=== PATIENT | female | born 1965 | race Caucasian/White ===

== ENCOUNTER 2016-10-12 08:32 | Emergency (ER) | payer BC, OTHER ==
[2016-10-12 08:39] VITALS: BP 141/101; RESP 18; TEMP 98.6
--- NOTE | 2016-10-12 08:44 | EDPHY ---
H & P Stated Complaint: coughing worse at night, sore throat, pred &MDI not helping Time Seen by Provider: 10/12/16 08:39 - Personal History Current Tetanus/Diphtheria Vaccine: Unsure Current Tetanus Diphtheria and Acellular Pertussis (TDAP): Unsure - Medical/Surgical History Hx Asthma: Yes Hx Chronic Respiratory Disease: No Hx Diabetes: No Hx Cardiac Disease: No Hx Renal Disease: No Hx Cirrhosis: No Hx Alcoholism: No Hx HIV/AIDS: No Hx Splenectomy or Spleen Trauma: No Other PMH: 14 knee surg/ bilat shoulder surg/ appy/TA/Hyst. numerous chemical sensitivites etc - Social History Smoking Status: Former smoker Constitutional: Initial Vital Signs Temperature (C) 37.0 C 10/12/16 08:36 Heart Rate 91 10/12/16 08:36 Respiratory Rate 18 10/12/16 08:36 Blood Pressure 141/101 H 10/12/16 08:36 O2 Sat (%) 94 10/12/16 08:36 O2 Delivery Mode Room Air Allergies/Adverse Reactions: allergic to everything Allergy (Uncoded 10/06/15 15:26) Home Medications: Medication Instructions Recorded Albuterol 10/06/15 Pulmicort 10/06/15 guaiFENesin/CODEINE PHOS 5 - 10 ml PO Q4-6PRN PRN #120 ml 10/06/15 [Robitussin AC] predniSONE 10/06/15 predniSONE [prednisone 20mg (RX)] 20 mg PO DAILY #15 tab 10/06/15 Medical Decision Making - Diagnostics Imaging: Imaging Impressions Chest X-Ray 10/12/16 08:51 Impression: Stable and negative. ED Course/Re-evaluation: CHIEF COMPLAINT: Cough, fever, asthma. HISTORY OF PRESENT ILLNESS: The patient is a 51-year-old female with a history of asthma who presents with cough and fever worsening over the past week. She reports that she and her recently moved into a new house and due to her chemical sensitivity her asthma has gotten progressively worse. She admits associated sore throat. No vomiting, diarrhea, abdominal pain, or other complaints. She has been taking steroids for 3 days to no effect, along with her albuterol nebulizer. REVIEW OF SYSTEMS: A 10 point review of systems was performed and is negative with the exception of the elements mentioned in the history of present illness. PHYSICAL EXAM: HR, BP, O2 Sat, RR. Temp noted General Appearance: Alert, well hydrated, appropriate, and non-toxic appearing. Head: Atraumatic without scalp tenderness or obvious injury Eyes: Pupils equal, round, reactive to light and accommodation, EOMI, no trauma , no injection. Ears: Clear bilaterally, no perforation, normal landmarks Nose: Atraumatic, no rhinorrhea, clear. Throat: There is no erythema or exudates, no lesions, normal tonsils, mucus membranes moist. Neck: Supple, 2+ carotid upstroke, nontender, no lymphadenopathy. Respiratory: No retractions, no distress, and no accessory muscle use. Coarse rhonchi and end expiratory wheezing. Cardiovascular: Regular rate and rhythm, no murmurs, rubs, or gallops. Bilateral carotid, radial, dorsalis pedis, and posterior tibial pulses intact. Good capillary refill all extremities. Gastrointestinal: Abdomen is soft, nontender, non-distended, no masses, no rebound, no guarding, no peritoneal signs. Musculoskeletal: Normal active ROM of all extremities, atraumatic. Neurological: Alert, appropriate, and interactive. The patient has normal DTRs and non-focal cranial nerves, motor, sensory, and cerebellar exam. Skin: No rashes, good turgor, no nodules on palpation. Past medical history: Asthma. Past surgical history: Shoulder, T/A, appendectomy, hysterectomy. Family history: N/A. Social history: . DIAGNOSTICS/PROCEDURES/CRITICAL CARE TIME: I independently reviewed the patient's imaging studies on the PACS system. See Imaging section for radiologist reports. DIFFERENTIAL DIAGNOSIS: Differential diagnosis includes but is not limited to: viral syndrome, pneumonia , influenza, asthma exacerbation, pharyngitis, bronchitis (viral or bacterial). MEDICAL DECISION MAKIN-year-old female with a history of asthma presents with progressively worsening cough, shortness of breath, and fever. She has asthma exacerbated by chemical exposure which she feels has gotten worse recently on top of some sort of illness. She has a sore throat as well but no vomiting or diarrhea. I think it is unlikely this could represent influenza but we will obtain a swab. We will obtain a chest x-ray and administer a DuoNeb. Labs are not needed at this time. Chest x-ray interpreted by me is negative. She will be discharged and treated for bronchitis. She is allergic to Azithromycin so I will give her a prescription for Doxycycline. I will give her Atrovent to use in her home nebulizer. She has enough Prednisone left and does not need a prescription for this. - Data Points Laboratory Results: 10/12/16 09:20 Influenza Typ A,B (DFA) Pending Medications Given: Discontinued Medications Albuterol/Ipratropium (Duoneb) 3 ml IH EDNOW ONE Stop: 10/12/16 08:52 Last Admin: 10/12/16 09:02 Dose: 3 ml Departure - Departure Disposition: Home, Routine, Self-Care Clinical Impression: Bronchitis Condition: Good Instructions: Acute Bronchitis (ED) Additional Instructions: Take the antibiotic as prescribed. Follow up with your primary care provider in the next 3-4 days if symptoms are not improving. If you need a primary care provider you have been given the telephone number of Dr. Albert. Return to the emergency department if you experience any serious worsening of condition. Referrals: Rodriguez Albert MD [Medical Doctor] - As per Instructions Report Scribed for: Bg Ramsey Report Scribed by: Carlos Davidson Date of Report: 10/12/16 Time of Report: 08:53
[2016-10-12] MEDS ORDERED: IPRATROPIUM/ALBUTEROL 3 ML DEYVIAL IH ONE (08:51)
[2016-10-12 10:14] VITALS: PULSE 88; O2SAT 96
== END 2016-10-12 10:13 | disposition home or self-care (01) ==
DX: J40 Bronchitis, not specified as acute or chronic (principal); Z87.891 Personal history of nicotine dependence

== ENCOUNTER 2016-12-03 08:21 | Observation (INO) | payer OTHER ==
--- NOTE | 2016-12-03 07:39 | CPEKG ---
Heart Rate: 63 RR Interval: 952 P-R Interval: 124 QRSD Interval: 82 QT Interval: 456 QTC Interval: 467 P Partlow: 43 QRS Partlow: -3 T Wave Partlow: 38 EKG Severity - NORMAL ECG - EKG Impression: SINUS RHYTHM Electronically Signed By: Prince Millard 05-Dec-2016 12:04:17
[2016-12-03] MEDS ORDERED: LIDOCAINE 1% 2 ML INJ ONE ×2 (09:11→09:18)
[2016-12-03] MEDS ORDERED: DEXAMETHASONE 10 MG/ML VIAL ONE (09:43)
[2016-12-03] MEDS ORDERED: LIDO/EPI 1% **Not for Epidural 20 ML MDV ONE (09:47)
[2016-12-03] MEDS ORDERED: MIDAZOLAM 2 MG/2 ML VIAL ONE (10:09)
[2016-12-03] MEDS ORDERED: LIDOCAINE 1% 5 ML SDV ID PRN (10:15)
[2016-12-03] MEDS ORDERED: LR 1,000 ML IV ONE (10:15)
[2016-12-03] MEDS ORDERED: ONDANSETRON 4 MG/2 ML VIAL IVP PRN (10:16)
[2016-12-03] MEDS ORDERED: D5W 1/2 NS W/ 20 KCl/L 1,000 ML IV SCH (10:30)
[2016-12-03] MEDS ORDERED: PROPOFOL 200 MG/20 ML VIAL ONE (10:34)
[2016-12-03] MEDS ORDERED: fentaNYL 100 MCG/2 ML INJ ONE ×5 (10:34→13:38)
[2016-12-03] MEDS ORDERED: ceFAZolin 2 GM/DEXTROSE 100 ML IV ONE (11:00)
[2016-12-03] MEDS ORDERED: DEXAMETHASONE 10 MG/ML VIAL IV ONE (11:00)
[2016-12-03] MEDS ORDERED: THROMBIN (BOVINE) 5,000 UNIT VIAL TP ONE (12:38)
--- NOTE | 2016-12-03 13:47 | GOP ---
[f rep st] OPERATIVE REPORT DATE OF OPERATION: 12/03/2016 SURGEON: Darrick Ny MD CONTRACT CONSULTANT: Harlan Choi MD ANESTHESIA: General endotracheal. PREOPERATIVE DIAGNOSIS: Multinodular goiter. POSTOPERATIVE DIAGNOSIS: Multinodular goiter. PROCEDURE PERFORMED: FINDINGS: SPECIMENS: Hypertrophic and nodular thyroid gland. ESTIMATED BLOOD LOSS: 150 mL. DESCRIPTION OF PROCEDURE: Patient was placed on the operating table in the supine position. After induction of adequate general endotracheal anesthesia, a shoulder roll was placed beneath the patien t's shoulders to extend the neck. The area surrounding the proposed incision was infiltrated utiliz ing 1% lidocaine with 1:100,000 parts epinephrine. A sterile prep of the anterior neck then proceed ed. Once draping had been completed, an incision was created in a naturally-occurring skin crease, slightly superior to the mid point between the cricoid cartilage and the sternal notch. Incision wa s carried down through subcutaneous tissues and through the platysma muscle. Flaps were then elevat ed superiorly and inferiorly in a plane anterior to the strap musculature, widely exposing the thyro id bed. The vertical midline of the neck was identified and then incised. The incision was carried down, reflecting the strap muscles laterally until the thyroid was reached. Initially, the right t hyroid lobe was encountered. Moderate nodularity was noted throughout the enlarged hypertrophic goi ter. Circumferential dissection of the right thyroid was performed, reflecting the strap musculatur e off the underlying thyroid gland. Initially, attention was directed to superior pedicle. The sup erior thyroid pole was grasped with a Hayward and retracted inferomedially. The vascular pedicle wa s then clamped, cut, and tied with 2-0 silk tie distally and a 2-0 silk suture ligature proximally. Dissection then proceeded along the posterior aspect of the gland. The inferior vascular pedicle w as identified. This was clamped, cut, and tied with 2-0 silk ties. Dissection proceeded further al mike the hypertrophic and nodular thyroid, until the tracheoesophageal groove was reached. The recur rent laryngeal nerve was identified and was kept under direct visualization and kept out of harm's w ay as dissection proceeded. The tissues of Mcghee ligament were treated with the bipolar electrocaut melodie, and then sharply divided along the reflection of the right thyroid lobe along the anterior aspe ct of the trachea. Two parathyroid's were identified during this dissection and were left in situ. Attention was then directed to the left side of the neck. The strap musculature was reflected off t he markedly hypertrophic and nodular left thyroid lobe. Initially, the superior vascular pedicle wa s addressed. The superior pole was grasped with a Hayward and retracted inferiorly. The vascular p edicle was then clamped and cut. The proximal portion was tied with a 2-0 silk suture ligature and distal portion tied with 2-0 silk ties. The inferior vascular pedicle was encountered; this was cla mped, cut, and tied with 2-0 silk ties. Marked irregularity and nodularity were noted throughout th e left thyroid lobe. As dissection proceeded, it became necessary to perform finger dissection to r eflect and deliver the markedly hypertrophic lobe into the wound. Once this had been completed, dis section proceeded along the thyroid and immediately super-capsular plane. The recurrent laryngeal n erve was identified in the cricoarytenoid joint and dissected from proximal to distal, keeping the n erve under direct visualization. Once this was completed, the of the thyroid and the ant erior trachea were divided utilizing Bovie electrocautery. The thyroid was then removed. At this p oint, a number of small bleeders were addressed with the bipolar electrocautery. A Dwaine-Castellanos dr starkey was then placed deep in the wound and passed out through the right lateral aspect of the wound, and was sutured into place with 2-0 silk suture. The deep layer closure of the wound was performed utilizing interrupted 3-0 Vicryl sutures approximating the strap musculature. The straps were then reapproximated with a deep layer of the wound utilizing interrupted 4-0 Monocryl sutures. The skin was closed with running 5-0 locked Prolene sutures. The patient tolerated the procedure well and was awakened from anesthesia. PROCEDURE PLANNED AND PERFORMED: Total thyroidectomy. FLUIDS REPLACED: 1000 mL. COMPLICATIONS: None. /[id number]/MODL
[2016-12-03] MEDS ORDERED: HYDROmorphONE/DILAUDID 1 MG/ML SYR ONE (13:54)
[2016-12-03] MEDS: DEXAMETHASONE 4 MG/ML VIAL IVP SCH ×2 (17:12→21:32)
[2016-12-03 17:13] LABS: IONIZED CALCIUM 1.08 MMOL/L (1.12-1.30)
[2016-12-03] MEDS ORDERED: ACETAMINOPHEN 500 MG TAB PO PRN (17:18)
--- NOTE | 2016-12-03 17:18 | SOAPPROG ---
SOAP Progress Note Assessment/Plan: Assessment:51 year old female s/p thyroidectomy. Doing well. Mild dysphagia. - Will discharge home tomorrow AM - Will prescribe tylenol for tonight 12/03/16 17:16 Subjective: 51 year old female s/p thyroidectomy. Doing well. Some mild dysphagia. Mild pain. No numbness/tingling. Objective: Vital Signs Temp Pulse Resp BP Pulse Ox 36.4 C 59 L 16 119/81 H 98 12/03/16 16:20 12/03/16 16:20 12/03/16 16:20 12/03/16 16:20 12/03/16 16:20 12/02/16 12/03/16 12/04/16 05:59 05:59 05:59 Intake Total 1630 Output Total 185 Balance 1445 Voice strong, no stridor Neck flat Drain in place OP normal ICD10 Worksheet Patient Problems: Problems Problem Status Onset S/P thyroidectomy Acute - ICD10 Problem Qualifiers (1) S/P thyroidectomy
[2016-12-03] MEDS: HYDROCOD/APAP 7.5/325 IN 15ML UDCUP PO PRN (21:32)
[2016-12-03] MEDS: CALCIUM CARBONATE 500 MG CHEWABLE TAB PO SCH (21:32)
[2016-12-03 22:14] LABS: IONIZED CALCIUM 1.04 MMOL/L (1.12-1.30)
[2016-12-04] MEDS: DEXAMETHASONE 4 MG/ML VIAL IVP SCH (04:34)
[2016-12-04] MEDS: HYDROCOD/APAP 7.5/325 IN 15ML UDCUP PO PRN ×2 (04:34→09:18)
[2016-12-04 05:32] VITALS: O2SAT 92
[2016-12-04 06:06] LABS: IONIZED CALCIUM 1.06 MMOL/L (1.12-1.30)
--- NOTE | 2016-12-04 07:32 | SOAPPROG ---
SOAP Progress Note Assessment/Plan: Pt sp total thyroid yesterday. Doing well. No hoarseness. No numbness or tingling. O- dressing removed, drain removed, dressing reapplied. Ca- 1.06 Plan: Pt s/p total thyroid. Seen by Dr. alonso this am. Post op care discussed. She will start Tums 2 po tid. F/u in 5 days. 12/04/16 07:30 Objective: Vital Signs Temp Pulse Resp BP Pulse Ox 36.8 C 75 14 111/51 L 92 12/04/16 04:00 12/04/16 04:00 12/04/16 04:00 12/04/16 04:00 12/04/16 04:00 12/03/16 12/04/16 12/05/16 05:59 05:59 05:59 Intake Total 1630 Output Total 185 Balance 1445 ICD10 Worksheet Patient Problems: Problems Problem Status Onset S/P thyroidectomy Acute
[2016-12-04 08:51] VITALS: BP 109/69; PULSE 72; RESP 18; TEMP 97.9
[2016-12-04] MEDS ORDERED: levOFLOXACIN 500 MG/DEXTROSE 100 ML IV SCH (09:00)
[2016-12-04] MEDS: CALCIUM CARBONATE 500 MG CHEWABLE TAB PO SCH (09:18)
== END 2016-12-04 11:57 | disposition home or self-care (01) ==
LOC: F3E 08:21
PROVIDERS: ADMIT Otolaryngology; ATTEND Otolaryngology
PROC: 0GTK0ZZ Resection of Thyroid Gland, Open Approach (ICD-10-PCS; principal; 2016-12-03 10:15)
DX: D34 Benign neoplasm of thyroid gland (principal); E04.2 Nontoxic multinodular goiter; J30.9 Allergic rhinitis, unspecified; J45.909 Unspecified asthma, uncomplicated; K21.9 Gastro-esophageal reflux disease without esophagitis; G43.909 Migraine, unspecified, not intractable, without status migrainosus
CPT/HCPCS: 60240; 93005; G0378; J0690; J1100; J1170; J1200; J2250; J2704; J3010

== ENCOUNTER 2016-12-08 15:15 | Emergency (ER) | payer OTHER ==
[2016-12-08 15:21] VITALS: RESP 16
--- NOTE | 2016-12-08 15:30 | EDPHY ---
HPI/HX/ROS/PE/MDM Narrative: CHIEF COMPLAINT: Right hand swelling HPI: This patient is a 51-year-old female status five days post thyroidectomy performed by Dr. Ny who presents to the Emergency Department complaining of swelling and moderate pain to the site of her IV on her right hand beginning three days prior to arrival and worsening over time. She is taking a course of clindamycin following the procedure but reports that her swelling has continued to increase. Today, she also complains of generalized malaise and nausea. She denies any additional complaints and reports that her procedure was without complication and recovery has been appropriate. No additional pertinent medical history. REVIEW OF SYSTEMS: Aside from elements discussed in the HPI, a comprehensive 10-point review of systems was reviewed and is negative. PMH: 1. Thyroidectomy 2. Multiple orthopedic surgeries 3. Appendectomy SOCIAL HISTORY: PHYSICAL EXAM: General:Patient is alert, in no acute distress. ENT:Eyes are normal to inspection. ENT inspection normal. Neck: Normal inspection. Full range of motion. Respiratory:No respiratory distress. Breath sounds normal bilaterally. Cardiovascular: Regular rate and rhythm. Strong peripheral pulses. Normal cap refill. Abdomen:The abdomen is nontender to palpation. There are no peritoneal signs. There are normal bowel sounds. Back: Normal to inspection. No tenderness to palpation. Skin: Normal color. No rash. Warm and dry. Extremities: Right hand: Erythema and swelling measuring 10cm in diameter to the dorsum of the right hand toward the radial aspect. Limited range of motion to right fingers secondary to pain. All other extremities: Normal appearance, full range of motion. Neuro: Oriented x3. Normal motor function. Normal sensory function. ED Course: 51-year-old female status 5 days post-thyroidectomy presents with complaints of worsening swelling and associated tenderness to her right hand at the site of her IV placement. She also complains of generalized malaise and mild nausea. On exam, she has an area of erythema and swelling measuring 10cm in diameter to the dorsum of her right hand. No additional significant findings. Will proceed with labs and US of the right lower extremity. CBC and basic metabolic panel obtained: WBC elevated at 12.66. Chemistries are within normal limits. 1711: US results reported to me by Dr. Aguilar and is negative. I discussed imaging results and lab findings with the patient. She is given instructions to follow-up with her surgeon and PCP as she has already scheduled. I discussed use of OTC mag citrate for constipation. She understands this treatment plan and will be discharged home in good condition. MDM: This patient presents with swelling and redness to her right hand, which was site of previous PIV. Her US is negative for abscess or DVT. Her WBC is slightly elevated. We will treat her for possible cellulitis with Keflex, which she states she has tolerated in the past. I see no signs of hypocalcemia. She has an appointment with her ENT tomorrow. - Data Points Imaging Results: Imaging Impressions Extremity Venous Study 12/08/16 15:32 Impression: No evidence of vein thrombosis in the right upper extremity. Results discussed with Dr. Clement at 5:11am. Imaging: Discussed imaging studies w/ manager of customer billing Radiologist (Negative) Laboratory Results: Laboratory Results 12/08/16 15:50 12/08/16 15:50 12/08/16 12/08/16 15:50 15:50 WBC 12.66 10^3/uL H 10^3/uL (3.80-9.50) RBC 5.12 10^6/uL 10^6/uL (4.18-5.33) Hgb 15.5 g/dL g/dL (12.6-16.3) Hct 45.5 % % (38.0-47.0) MCV 88.9 fL fL (81.5-99.8) MCH 30.3 pg pg (27.9-34.1) MCHC 34.1 g/dL g/dL (32.4-36.7) RDW 12.3 % % (11.5-15.2) Plt Count 320 10^3/uL 10^3/uL (150-400) MPV 10.1 fL fL (8.7-11.7) Neut % (Auto) 73.5 % % (39.3-74.2) Lymph % (Auto) 15.2 % % (15.0-45.0) Long % (Auto) 8.0 % % (4.5-13.0) Eos % (Auto) 2.1 % % (0.6-7.6) Baso % (Auto) 0.5 % % (0.3-1.7) Nucleat RBC Rel Count 0.0 % % (0.0-0.2) Absolute Neuts (auto) 9.31 10^3/uL H 10^3/uL (1.70-6.50) Absolute Lymphs (auto) 1.92 10^3/uL 10^3/uL (1.00-3.00) Absolute Monos (auto) 1.01 10^3/uL H 10^3/uL (0.30-0.80) Absolute Eos (auto) 0.27 10^3/uL 10^3/uL (0.03-0.40) Absolute Basos (auto) 0.06 10^3/uL 10^3/uL (0.02-0.10) Absolute Nucleated RBC 0.00 10^3/uL 10^3/uL (0-0.01) Immature Gran % 0.7 % % (0.0-1.1) Immature Gran # 0.09 10^3/uL 10^3/uL (0.00-0.10) Sodium 136 mEq/L mEq/L (134-144) Potassium 4.2 mEq/L mEq/L (3.5-5.2) Chloride 101 mEq/L mEq/L (97-110) Carbon Dioxide 26 mEq/l mEq/l (22-31) Anion Gap 9 mEq/L mEq/L (8-16) BUN 12 mg/dL mg/dL (7-23) Creatinine 0.8 mg/dL mg/dL (0.6-1.0) Estimated GFR > 60 Glucose 118 mg/dL H mg/dL (70-100) Calcium 9.8 mg/dL mg/dL (8.5-10.4) General Time Seen by Provider: 12/08/16 15:25 Initial Vital Signs: Initial Vital Signs Temperature (C) 36.7 C 12/08/16 15:19 Heart Rate 98 12/08/16 15:19 Respiratory Rate 16 12/08/16 15:19 Blood Pressure 131/99 H 12/08/16 15:19 O2 Sat (%) 94 12/08/16 15:19 O2 Delivery Mode Room Air Allergies/Adverse Reactions: contact metal agent Allergy (Verified 11/19/16 10:16) weber Allergy (Verified 11/19/16 10:16) latex Allergy (Verified 11/19/16 10:16) Penicillins Allergy (Verified 11/19/16 10:16) Itching perfume Allergy (Verified 11/19/16 10:16) BALLOONS Allergy (Uncoded 11/19/16 10:16) NITRO GLOVES Allergy (Uncoded 11/19/16 10:16) Home Medications: Medication Instructions Recorded Albuterol [Proventil Inhaler HFA 1 - 2 puffs IH DAILY PRN 11/19/16 (*)] Mometasone/Formoterol [Dulera 200 2 puffs IH DAILY 11/19/16 Mcg/5 Mcg Inhaler] Olopatadine HCl [Patanase] 2 sprays EACHNARE DAILY 11/19/16 Cephalexin [Keflex] 500 mg PO Q6H #28 cap 12/08/16 Departure - Departure Disposition: Home, Routine, Self-Care Clinical Impression: Cellulitis of hand Constipation Qualifiers: Constipation type: chronic idiopathic constipation Qualified Code(s): K59.04 - Chronic idiopathic constipation Condition: Good Instructions: Constipation (ED), Cellulitis (ED) Additional Instructions: 1. Keep your scheduled follow-up appointment with your doctor. 2. Buy and use magnesium citrate over the counter as directed to relieve your constipation. 3. Return to the Emergency Department if you experience fever or chills, increased pain or swelling, inability to pass a bowel movement, severe abdominal pain, or for other serious concerns. Referrals: Reanna Ny MD [Medical Doctor] - As per Instructions Prescriptions: Cephalexin [Keflex] 500 mg PO Q6H #28 cap Report Scribed for: Ayan Clement Report Scribed by: Shweta Snow Date of Report: 12/08/16 Time of Report: 15:28 Physician Review and Approval Statement: Portions of this note were transcribed by an ED scribe. I personally performed the history, physical exam, and medical decision making; and confirm the accuracy of the information in the transcribed note.
[2016-12-08 15:55] LABS: % IMMATURE GRANULYOCYTES 0.7 % (0.0-1.1); ABSOLUTE IMMATURE GRANULOCYTES 0.09 10^3/uL (0.00-0.10); ADD DIFF? NO; ADD MORPH? NO; ADD SCAN? NO; ATYPICAL LYMPHOCYTE FLAG 0 (0-99); FRAGMENT RBC FLAG 0 (0-99); HEMATOCRIT 45.5 % (38.0-47.0); HEMOGLOBIN 15.5 g/dL (12.6-16.3); LEFT SHIFT FLG 0 (0-99); LIPEMIA HEMOLYSIS FLAG 90 (0-99); MEAN CELL HEMOGLOBIN 30.3 pg (27.9-34.1); MEAN CELL HEMOGLOBIN CONCENTR. 34.1 g/dL (32.4-36.7); MEAN CELL VOLUME 88.9 fL (81.5-99.8); MEAN PLATELET VOLUME 10.1 fL (8.7-11.7); PLATELET CLUMPS FLAG 0 (0-99); PLATELET COUNT 320 10^3/uL (150-400); RED BLOOD CELL COUNT 5.12 10^6/uL (4.18-5.33); RED CELL DISTRIBUTION WIDTH 12.3 % (11.5-15.2)
[2016-12-08 16:06] LABS: ANION GAP 9 mEq/L (8-16); CALCIUM 9.8 mg/dL (8.5-10.4); CARBON DIOXIDE 26 mEq/l (22-31); CHLORIDE 101 mEq/L (97-110); CREATININE 0.8 mg/dL (0.6-1.0); GLOMERULAR FILTRATION RATE > 60; GLUCOSE 118 mg/dL (70-100); POTASSIUM 4.2 mEq/L (3.5-5.2); SODIUM 136 mEq/L (134-144)
[2016-12-08 17:28] VITALS: BP 125/76; PULSE 81; TEMP 97.9; O2SAT 98
== END 2016-12-08 17:43 | disposition home or self-care (01) ==
DX: L03.113 Cellulitis of right upper limb (principal); K59.04 Chronic idiopathic constipation; Z91.040 Latex allergy status; Y82.8 Other medical devices associated with adverse incidents

== ENCOUNTER → 2017-11-15 | Outpatient (CLI) | payer OTHER | LOC: FIMAGING 10:35 | PROVIDERS: ATTEND Emergency Medicine | DX: R51 Headache (principal); M79.89 Other specified soft tissue disorders ==

== ENCOUNTER 2018-04-06 16:52 | Emergency (ER) | payer OTHER ==
--- NOTE | 2018-04-06 17:22 | EDPHY ---
H & P Stated Complaint: Fall/syncope Time Seen by Provider: 04/06/18 17:03 HPI/ROS: CHIEF COMPLAINT: Right knee pain HISTORY OF PRESENT ILLNESS: 53-year-old female drove herself to the ER complaining of acute right knee pain which occurred approximately 4:30 p.m. Today. She describes being at her physical therapist office having EMG study of her right upper extremity, was laying down for prolonged period of time. She was leaving the office, felt lightheaded, missed a stair and fell forward impacting her right knee. She may have had a brief loss of consciousness. She now states that she is feeling well but is unsure whether she may have hit her head or not. No seizure activity was witnessed by the office staff. No incontinence. No oral trauma. Her only complaint now is right knee pain. She has history of multiple remote right knee surgeries. She denies: Alcohol or drug use, headache, antecedent chest pain, dyspnea, dizziness, current complaints of chest pain or dyspnea, midline C-spine pain, peripheral paresthesia, weakness, numbness PRIMARY CARE PROVIDER:Dr Perez at [facility] REVIEW OF SYSTEMS: 10 systems reviewed and negative with the exception of the elements mentioned in the history of present illness PAST MEDICAL/SURGICAL HISTORY: no anticoagulant use, multiple right knee surgeries. Hypothyroid. Thyroidectomy. Asthma. No history of vasculopathy/ coagulopathy. No history of cardiac disease. Tetanus up-to-date SOCIAL HISTORY: denies alcohol use at time of incident FAMILY HISTORY: No family history premature coronary artery disease, coagulopathic disorder PHYSICAL EXAM 1) GENERAL: Well-developed, well-nourished, alert and oriented. Appears to be in no acute distress. Answering questions appropriately. 2) HEAD: Normocephalic, atraumatic 3) HEENT: Pupils equal, round, reactive to light bilaterally. Negative Horners. Nasopharynx, oropharynx, clear. No deformity or angulation of nose. No septal hematoma. No rhinorrhea. No oral trauma. Ears bilaterally with normal tympanic membranes. No hemotympanum. No fluid or blood in the external auditory canal. No raccoon eyes. No Do sign. Teeth are normally aligned with no gross malocclusion, TMJ bilaterally nontender, facial bones nontender including the zygomatic arch, maxilla mandible. 4) NECK: No cervical collar is on. Posterior cervical spine is nontender, no stepoff, no effusion. Full range of motion which does not elicit any midline cervical spine pain, no posterior midline tenderness, no step-off. 5) LUNGS: Clear to auscultation bilaterally, no wheezes, no rhonchi, no retractions. No obvious signs of trauma. No chest wall pain. No flaring, no grunting. Moving symmetrically. No crepitus. 6) HEART: [Regular rate and rhythm, 7) ABDOMEN: No guarding, no rebound, no focal tenderness, no peritoneal signs, no signs of trauma, no ecchymosis 8) MUSCULOSKELETAL: Right lower extremity: Abrasion to the right anterior knee with noted tenderness over the patella, ecchymosis, old scar noted. Full flexion 90 degrees, full extension to 180 degrees albeit with pain. Proximally distally nontender. Soft compartments. Distal DP PT pulses present and brisk. Dorsiflexion plantar flexion elicits no pain proximally. Otherwise, Moving all extremities, no focal areas of tenderness, no obvious trauma. 9) BACK: No midline vertebral tenderness, no fluctuance, no step-off, no obvious trauma, no visual or palpable abnormality. 10) SKIN: No laceration. DIFFERENTIAL DIAGNOSIS: In no particular order including but not limited to fracture, sprain, strain, dislocation, compartment syndrome, cardiac dysrhythmia , - Personal History LMP (Females 10-55): Hysterectomy Current Tetanus/Diphtheria Vaccine: Yes - Medical/Surgical History Hx Asthma: Yes Hx Chronic Respiratory Disease: No Hx Diabetes: No Hx Cardiac Disease: No Hx Renal Disease: No Hx Cirrhosis: No Hx Alcoholism: No Hx HIV/AIDS: No Hx Splenectomy or Spleen Trauma: No Other PMH: 14 knee surg/ bilat shoulder surg/ appy/TA/Hyst. numerous chemical sensitivites etc - Social History Smoking Status: Former smoker Constitutional: Initial Vital Signs Temperature (C) 36.7 C 04/06/18 16:57 Heart Rate 63 04/06/18 16:57 Respiratory Rate 18 04/06/18 16:57 Blood Pressure 137/93 H 04/06/18 16:57 O2 Sat (%) 96 04/06/18 16:57 O2 Delivery Mode Room Air Allergies/Adverse Reactions: contact metal agent Allergy (Verified 04/06/18 17:00) weber Allergy (Verified 04/06/18 17:00) latex Allergy (Verified 04/06/18 17:00) Penicillins Allergy (Verified 04/06/18 17:00) Itching perfume Allergy (Verified 04/06/18 17:00) BALLOONS Allergy (Uncoded 04/06/18 17:00) NITRO GLOVES Allergy (Uncoded 04/06/18 17:00) Home Medications: Medication Instructions Recorded Albuterol [Proventil Inhaler HFA 1 - 2 puffs IH DAILY PRN 11/19/16 (*)] Mometasone/Formoterol [Dulera 200 2 puffs IH DAILY 11/19/16 Mcg/5 Mcg Inhaler] Olopatadine HCl [Patanase] 2 sprays EACHNARE DAILY 11/19/16 Cephalexin [Keflex] 500 mg PO Q6H #28 cap 12/08/16 Medical Decision Making - Diagnostics Imaging Results: Imaging Impressions Knee X-Ray 04/06/18 17:03 Impression: 1. No acute osseous abnormality seen right knee. 2. Postoperative changes from previous ACL repair. 3. Moderate degenerative changes at the knee joint and patellofemoral joint. 4. Intra-articular calcific fragment suspected posteriorly at the knee joint and in the suprapatella bursa. 5. Soft tissue swelling inferior to the patella. Chest X-Ray 04/06/18 17:17 Impression: Normal chest x-ray. Images reviewed myself Procedures: Procedure: Crutches indications for crutch use discussed with patient. Patient fitted for crutches by ER staff. Observed ambulating with crutches. I think the patient has the capacity to safely use crutches. Usual and customary crutch walking precautions provided Procedure: Splint A knee immobilizer splint was applied by ER quality lab technician. After application of the splint I returned and re-examined the patient. The splint was adequately immobilizing the joint and distal to the splint the patient's circulation and sensation were intact. Patient shows no signs of compartment syndrome. Was given orthopedic precautions. ED Course/Re-evaluation: 5:22 p.m.: I have evaluated the patient. Will obtain x-ray of the left knee. Will also obtain other diagnostic studies as she relates that she is unsure whether she missed a step sustained a mechanical fall a whether she had a near syncopal episode. On exam I do not identify other areas of trauma or discomfort beyond her knee. She uses no signs of clinical intoxication 6:58 p.m.: Patient was re-evaluated with serial examinations. We discussed her x-ray showing no definitive acute osseous abnormality. Discussed limitations of x-ray the diagnosis of knee injury. At this time I do not think that emergent MRI is indicated however have recommend follow up with Orthopedics and given her referral to . patient has been placed in knee immobilizer and given crutches. Regarding her possible syncopal episode, she remains with a nonfocal exam. She shows no signs of head or other trauma beyond her knee. I do not think that CT imaging the head is indicated at this time. Doubt SD. Discussed possible vasovagal pathology. At this time do not think that further diagnostic studies or hospitalization or indicated. Patient feels comfortable with this. I saw this patient independently based on established practice protocols. Care of patient under supervision of secondary supervising physician Dr Judith Foster with whom I discussed case. - Data Points Laboratory Results: Laboratory Results 04/06/18 17:50 04/06/18 17:50 04/06/18 04/06/18 04/06/18 17:55 17:50 17:50 WBC 8.77 10^3/uL 10^3/uL (3.80-9.50) RBC 4.66 10^6/uL 10^6/uL (4.18-5.33) Hgb 14.2 g/dL g/dL (12.6-16.3) Hct 42.1 % % (38.0-47.0) MCV 90.3 fL fL (81.5-99.8) MCH 30.5 pg pg (27.9-34.1) MCHC 33.7 g/dL g/dL (32.4-36.7) RDW 13.0 % % (11.5-15.2) Plt Count 242 10^3/uL 10^3/uL (150-400) MPV 10.5 fL fL (8.7-11.7) Neut % (Auto) 64.1 % % (39.3-74.2) Lymph % (Auto) 23.1 % % (15.0-45.0) [place] % (Auto) 7.6 % % (4.5-13.0) Eos % (Auto) 3.9 % % (0.6-7.6) Baso % (Auto) 1.0 % % (0.3-1.7) Nucleat RBC Rel Count 0.0 % % (0.0-0.2) Absolute Neuts (auto) 5.61 10^3/uL 10^3/uL (1.70-6.50) Absolute Lymphs (auto) 2.03 10^3/uL 10^3/uL (1.00-3.00) Absolute Monos (auto) 0.67 10^3/uL 10^3/uL (0.30-0.80) Absolute Eos (auto) 0.34 10^3/uL 10^3/uL (0.03-0.40) Absolute Basos (auto) 0.09 10^3/uL 10^3/uL (0.02-0.10) Absolute Nucleated RBC 0.00 10^3/uL 10^3/uL (0-0.01) Immature Gran % 0.3 % % (0.0-1.1) Immature Gran # 0.03 10^3/uL 10^3/uL (0.00-0.10) Sodium 139 mEq/L mEq/L (135-145) Potassium 4.1 mEq/L mEq/L (3.3-5.0) Chloride 105 mEq/L mEq/L (97-110) Carbon Dioxide 26 mEq/l mEq/l (22-31) Anion Gap 8 mEq/L mEq/L (8-16) BUN 16 mg/dL mg/dL (7-23) Creatinine 0.7 mg/dL mg/dL (0.6-1.0) Estimated GFR > 60 Glucose 102 mg/dL H mg/dL (70-100) Calcium 9.2 mg/dL mg/dL (8.5-10.4) POC Troponin I 0.01 ng/mL ng/mL (0.00-0.08) Point of Care Test Results: Chemistry 04/06/18 17:55 POC Troponin I 0.01 ng/mL ng/mL (0.00-0.08) Departure - Departure Disposition: Home, Routine, Self-Care Clinical Impression: Right knee injury Qualifiers: Encounter type: initial encounter Qualified Code(s): S89.91XA - Unspecified injury of right lower leg, initial encounter Condition: Good Instructions: Knee Pain (ED) Additional Instructions: Return to the ER immediately if you experience discoloration, have worsening pain, numbness, tingling, or any other symptoms that concern you. If you received x-rays in the emergency department today, be advised, that ligamentous , tendon, muscular, and other non-bony injury cannot be fully ruled out. Try to keep your affected extremity elevated above the level of your chest, and keep cold packs on the affected area, for the next 48 hours. Referrals: Maria Ines Orozco MD [Medical Doctor] - 2-3 days, call for appt.
[2018-04-06 18:26] LABS: PLATELET COUNT 242 10^3/uL (150-400)
--- NOTE | 2018-04-06 18:57 | CPEKG ---
Test Reason : OPEN Blood Pressure : / mmHG Vent. Rate : 056 BPM Atrial Rate : 055 BPM P-R Int : 126 ms QRS Dur : 084 ms QT Int : 494 ms P-R-T Axes : 019 -02 033 degrees QTc Int : 477 ms Sinus rhythm Confirmed by Baldemar Templeton ([id number]) on 04/06/2018 6:57:09 PM Referred By: Confirmed By:Baldemar Templeton
[2018-04-06 19:07] VITALS: BP 146/62
--- NOTE | 2018-04-06 22:57 | CPEKG ---
Test Reason : OPEN Blood Pressure : / mmHG Vent. Rate : 061 BPM Atrial Rate : 057 BPM P-R Int : 133 ms QRS Dur : 084 ms QT Int : 493 ms P-R-T Axes : 060 -24 148 degrees QTc Int : 497 ms Sinus rhythm Probable left atrial enlargement Borderline left axis deviation Nonspecific T abnrm, anterolateral leads Borderline prolonged QT interval Confirmed by Judith Foster ([id number]) on 04/06/2018 10:57:00 PM Referred By: Confirmed By:Judith Foster
== END 2018-04-06 19:34 | disposition home or self-care (01) ==
DX: R42 Dizziness and giddiness (principal); M25.561 Pain in right knee; M79.89 Other specified soft tissue disorders; W10.8XXA Fall (on) (from) other stairs and steps, initial encounter; Y92.531 Health care provider office as the place of occurrence of the external cause
CPT/HCPCS: 84484-PO; L1830